=== PATIENT | male | born 1950 | race Caucasian/White ===

== ENCOUNTER 2019-07-08 05:15 | Emergency (ER) | payer OTHER ==
[~2019-07-08] VITALS: Ht 177.8 cm; Wt 96.7 kg
--- NOTE | 2019-07-08 05:42 | NUR ---
PT TO ED WITH C/O HIGH BLOOD PRESSURE. PT IN STRESSFUL SITUATION PRIOR TO ARRIVAL HE WAS BROUGHT IN BY POLICE. PT UNSURE OF BASELINE BP AT HOME. PT CONNECTED TO MONITORING, EKG DONE ON ARRIVAL, CALL LIGHT WITHIN REACH, ALL SAFETY MEASURES IN PLACE.
[2019-07-08 06:09] LABS: ANION GAP 7 mmol/L (5-15); CALCIUM 8.8 mg/dL (8.5-10.1); CHLORIDE 109 mmol/L (98-107); CREATININE 1.57 mg/dL (0.7-1.3)
--- NOTE | 2019-07-08 06:47 | NUR ---
RECEIVED REPORT FROM CHRISTINE LAGUNA, PLAN OF CARE DISCUSSED
--- NOTE | 2019-07-08 07:16 | NUR ---
Patient/Caregiver given discharge instructions and they have confirmed that they understand the instructions. Patient ambulatory with steady gait.
[2019-07-08 07:17] VITALS: BP 161/92
== END 2019-07-08 07:17 | disposition home or self-care (01) ==
LOC: ED 06:00
DX: I13.10 Hypertensive heart and chronic kidney disease without heart failure, with stage 1 through stage 4 chronic kidney disease, or unspecified chronic kidney disease (principal); N18.3 Chronic kidney disease, stage 3 (moderate); R94.31 Abnormal electrocardiogram [ECG] [EKG]
CPT/HCPCS: 36415; 80048; 83735; 93005; 99284